=== PATIENT | male | born 1960 | race Caucasian/White ===

== ENCOUNTER 2018-08-26 13:16 | Outpatient (CLI) | payer OTHER ==
[~2018-08-26 13:16] MED LIST: Gadobenate Dimeglumine 529 MG/1 ML (20ML VIAL) ONE
--- NOTE | 2018-08-26 15:35 | MRI ---
PRE AND POSTCONTRAST ENHANCED MRI IMAGES LUMBAR SPINE 08/26/18 HISTORY: Previous surgery. Right leg pain. Multiplanar and multisequence pre and postcontrast enhanced MRI images lumbar spine obtained. For the purposes of this dictation, the last freely mobile vertebral body will be considered to be the L5 ve rtebral body. All other vertebral bodies numbered according to this. T12-L1, L1-2, L2-3: Unremarkable. L3-4: There is a mild broad based disc bulge and mild facet hypertrophy resulting in minimal central and lateral recess stenosis. The neural foramen are patent. L4-5: Disc desiccation seen. There is a right L4-5 foraminal and lateral recess disc extrusion extend ing into the epidural space compressing the right L4-5 lateral recess and right L5 nerve root. This e xtrusion has three dimensional measurements of 8.5 x 22 x 6.4 mm. The extrusion compresses the latera l recess and extends into the right neural foramen. The left neural foramen is patent. L5-S1: Disc desiccation seen. There is a broad based disc bulge and bilateral facet hypertrophy. No s ignificant degree of central stenosis seen. Mild lateral recess stenosis seen. The neural foramen are patent. Fluid seen in the L5-S1 disc space. IMPRESSION: 1. L5-S1 disc desiccation. 2. Large right L4-5 lateral recess and neural foraminal disc extrusion. POS: C
== END 2018-08-26 13:17 | disposition home or self-care (01) ==
LOC: TBSIIMAG 13:16
PROVIDERS: ATTEND Neurological Surgery
DX: M51.16 Intervertebral disc disorders with radiculopathy, lumbar region (principal)
CPT/HCPCS: 72158; A9577

== ENCOUNTER 2018-09-22 06:26 | Outpatient (CLI) | payer OTHER ==
[2018-09-22 11:01] LABS: Hemoglobin 14.1 g/dL (14.0-18.0); Mean Corpuscular HGB CONC 34.9 g/dL (32.0-36.0); Mean Corpuscular Hemoglobin 31.8 pg (27.0-31.0); Mean Corpuscular Volume 90.9 fL (78.0-98.0); Mean Platelet Volume 8.7 fL (7.4-10.4); Platelet Count 187 thou/uL (130-400); RBC Distribution Width 11.2 % (11.5-14.5); Red Blood Cell (RBC) Count 4.44 mill/uL (4.70-6.10); White Blood Cell (WBC) Count 4.8 thou/uL (4.8-10.8)
[2018-09-22 11:13] LABS: Anion Gap 11 mmol/L (10-20); BUN (Urea Nitrogen) 22 mg/dL (8.4-25.7); Calc. Creatinine Clearance 0 mL/min (70-130); Calcium 9.8 mg/dL (7.8-10.44); Carbon Dioxide 28 mmol/L (22-29); Chloride 105 mmol/L (98-107); Estimated GFR-MDRD 78; Glucose 103 mg/dL (70-105); Potassium 4.1 mmol/L (3.5-5.1); Sodium 140 mmol/L (136-145)
--- NOTE | 2018-09-28 18:14 | EKG ---
Test Reason : Blood Pressure : / mmHG Vent. Rate : 090 BPM Atrial Rate : 090 BPM P-R Int : 182 ms QRS Dur : 090 ms QT Int : 350 ms P-R-T Axes : 059 -02 039 degrees QTc Int : 428 ms Normal sinus rhythm Normal ECG When compared with ECG of 22-SEP-2018 10:07, (Unconfirmed) Sinus rhythm has replaced Junctional rhythm Confirmed by DIPESH HILTON (2) on 09/28/2018 6:13:49 PM Referred By: ELIER Confirmed By:DIPESH HILTON
== END 2018-09-22 06:27 | disposition home or self-care (01) ==
LOC: LABBT 06:26
PROVIDERS: ATTEND Neurological Surgery
DX: Z01.818 Encounter for other preprocedural examination (principal); M54.16 Radiculopathy, lumbar region
CPT/HCPCS: 80048; 85027; 93005; 93010

== ENCOUNTER 2018-09-27 07:52 | Day surgery (SDC) | payer OTHER ==
[2018-09-22 09:31] VITALS: BMI 27.1
[2018-09-27] MEDS ORDERED: Fentanyl 100 MCG/2 ML VIAL ONE ×4 (12:14→15:18)
[2018-09-27] MEDS ORDERED: Lidocaine 2% Jelly 5 ML TUBE ONE (12:24)
[2018-09-27] MEDS ORDERED: Meperidine HCl/PF 25 MG/ML VIAL ONE (15:20)
--- NOTE | 2018-09-27 15:27 | OP ---
DATE OF PROCEDURE: 09/27/2018 DISTANCE LEARNING ADMINISTRATOR: Melvina Jaime PA-C. PROCEDURE PERFORMED: Right L4-L5 redo microdiskectomy. DESCRIPTION OF PROCEDURE: The patient was brought to the operating room and intubated. He was rolled in a prone position on gel-filled chest rolls. An incision was made exposing L4 and L5 on the right, and the level was confirmed by x-ray. We identified the previous scar and extended the right L4-L5 hemilaminectomy. Beneath the right L5 nerve root, we did identify disk extrusion that was removed in multiple fragments. Copious scar tissue was present, which did challenge the resection. We did not find any disk extending into the L4 neuroforamen. After complete decompression had been secured, the wound was extensively irrigated and MAC hemostasis was secured. Vancomycin powder was applied, and the wound was closed in anatomic layers. Job ID: [id number]
[2018-09-27] MEDS ORDERED: Rocuronium Bromide 10 MG/ML (10ML VIAL) ONE (15:42)
[2018-09-27] MEDS ORDERED: Dexamethasone 20 MG/5 ML VIAL ONE (15:42)
[2018-09-27] MEDS ORDERED: Glycopyrrolate 0.2 MG/ML 5 ML SYRINGE ONE (15:42)
[2018-09-27] MEDS ORDERED: PROPOFOL 200 MG/20 ML VIAL ONE (15:42)
[2018-09-27] MEDS ORDERED: Ketorolac Tromethamine 30 MG/ML VIAL ONE (15:42)
[2018-09-27] MEDS ORDERED: Lidocaine 2% PF 5 ML VIAL ONE (15:42)
[2018-09-27] MEDS ORDERED: Ondansetron PF 4 MG/2 ML Vial ONE (15:42)
[2018-09-27] MEDS ORDERED: HYDROcodone/Acetaminophen 5/325 mg Tablet ONE (16:12)
--- NOTE | 2018-09-27 17:36 | EKG ---
Test Reason : PREOP Blood Pressure : / mmHG Vent. Rate : 090 BPM Atrial Rate : 090 BPM P-R Int : 206 ms QRS Dur : 092 ms QT Int : 364 ms P-R-T Axes : 099 -12 032 degrees QTc Int : 445 ms Sinus rhythm with Premature atrial complexes with Abberant conduction Otherwise normal ECG When compared with ECG of 22-SEP-2018 10:10, (Unconfirmed) Abberant conduction is now Present Confirmed by PHOEBE GARSIA, SSherry ([id number]) on 09/27/2018 5:36:24 PM Referred By: ELIER Confirmed By:DR. Willie SANDHU MD
== END 2018-09-27 17:30 | disposition home or self-care (01) ==
LOC: SDC 07:52
PROVIDERS: ATTEND Neurological Surgery
PROC: 0SB20ZZ Excision of Lumbar Vertebral Disc, Open Approach (ICD-10-PCS; principal; 2018-09-27)
DX: M51.16 Intervertebral disc disorders with radiculopathy, lumbar region (principal); Z79.1 Long term (current) use of non-steroidal anti-inflammatories (NSAID); Z79.891 Long term (current) use of opiate analgesic; Z79.899 Other long term (current) drug therapy
CPT/HCPCS: 76000; 93005; 93010; J0690; J1100; J1885; J2001; J2175; J2405; J2704; J3010; J3370

== ENCOUNTER 2019-08-25 15:11 | Outpatient (CLI) | payer OTHER ==
--- NOTE | 2019-08-25 17:44 | MRI ---
MRI LUMBAR SPINE WITH AND WITHOUT IV CONTRAST: 08/25/19 HISTORY: Lumbar radiculopathy. History of prior surgery. COMPARISON: 08/26/18. FINDINGS: Subcentimeter increased T2 weighted signal intensity lesions are again seen within the posterior aspe ct superior pole right kidney and in the posteromedial aspect of the mid portion left kidney unchange d in size or appearance compared to prior study, and no enhancement is seen likely related to small r enal cysts. Remainder of the retroperitoneal structures demonstrate a normal MRI appearance. Conus medullaris is normal in appearance and terminates at the L1-2 level. Focus of increased T1 and T2 weighted signal intensity is seen in the L2 as well as L4 vertebral bodi es likely related to small hemangiomas. End plate degenerative changes are again present at the L4-5 and L5-S1 levels. L1-2 level: No disc bulge or disc herniation. Central spinal canal and neural foramina are patent. L2-3 level: No disc bulge or disc herniation. Central spinal canal and neural foramina are patent. L3-4 level: Again noted is a mild broad based disc osteophyte complex with facet hypertrophic changes . There is no significant central canal or neural foraminal narrowing at this level. L4-5 level: Again noted is mild loss of intervertebral disc height. A right paracentral and foraminal disc protrusion is again seen; although, the AP dimension of the disc protrusion has improved. Previ ously measuring approximately 9 mm AP and now measures approximately 7 mm. There is slightly less mas s effect on the right anterolateral aspect of the thecal sac at this level. Mild mass effect does per sists. A right laminotomy defect is present at this level with enhancement seen in the region of the laminot delio defect and just to the right of the thecal sac likely related to scarring. The area of enhancemen t extends into the right lateral recess and abuts the traversing right L5 nerve root and partilally s urrounds the nerve root just as the nerve root exits the thecal sac. The neural foramina are patent a t this level. There is only slight mass effect on the right anterolateral aspect of the thecal sac. L5-S1 level: There is loss of intervertebral disc height. Broad based disc osteophyte complex is agai n seen similar to prior exam. Mild encroachment on each neural foramen is present similar to prior st udy. Central spinal canal is patent. IMPRESSION: 1. Postoperative changes L4-5 level with evidence of right laminotomy defect with enhancement se en in the region of the laminotomy defect and extending along the right lateral aspect of the thecal sac to the level of the subarticular zone in the region of the lateral recess compatible with scar. T he enhancement does abut and partially surrounds the traversing right L5 nerve root. 2. Improvement in size of the right foraminal disc protrusion compared to prior study, but a sma ll right foraminal disc protrusion does persist. 3. Stable mild degenerative changes at the L5-S1 level. 4. No high grade central canal or neural foraminal narrowing at any level. POS: J CARLOS
== END 2019-08-25 15:12 | disposition home or self-care (01) ==
LOC: TBSIIMAG 15:11
PROVIDERS: ATTEND Neurological Surgery
DX: M51.16 Intervertebral disc disorders with radiculopathy, lumbar region (principal); M47.27 Other spondylosis with radiculopathy, lumbosacral region; Z98.890 Other specified postprocedural states
CPT/HCPCS: 72158

== ENCOUNTER 2019-10-20 07:46 | Outpatient (CLI) | payer OTHER ==
--- NOTE | 2019-10-20 09:05 | BD ---
EXAM: DEXA bone density examination HISTORY: Displacement of intervertebral disc. COMPARISON: None. FINDINGS: L1--bone mineral density 0.920 g/sq cm; T score -1.4 . Z score -0.9 L2--bone mineral density 1.029 g/sq cm; T score -0.6; Z score 0.0 L3--bone mineral density 0.990 g/sq cm; T score -1.0; Z score -0.4 L4--bone mineral density 1.073 g/sq cm; T score -0.2, Z score 0.5 Total L1-L4 1.007 g/sq cm; T score -0.8, Z score -0.2 Left femoral neck 0.704; g/sq cm; T score -1.7, Z score -0.7 Total proximal left femur 0.912 g/sq cm; T score -0.8, Z score .-0.4 This patient has a 10 year WHO fracture risk of a major osteoporotic fracture of 6.0% and of a hip fr acture of 0.7%. IMPRESSION: Based on the WHO criteria, the patient's bone mineral density is considerednormal for the spine and o steopenia for the femoral neck. Transcribed Date/Time: 10/20/2019 9:23 AM
== END 2019-10-20 07:47 | disposition home or self-care (01) ==
LOC: BICMAMMO 07:46
DX: Z13.820 Encounter for screening for osteoporosis (principal); M53.80 Other specified dorsopathies, site unspecified; M85.859 Other specified disorders of bone density and structure, unspecified thigh
CPT/HCPCS: 77080

== ENCOUNTER 2020-02-27 13:07 | Outpatient (CLI) | payer OTHER ==
--- NOTE | 2020-02-27 15:11 | RAD ---
LUMBAR SPINE SERIES 4 VIEWS: Date: 02/27/2020 HISTORY: Back pain. History of surgery. FINDINGS: Disc implant is present at the L4-5 level. There is moderate disc narrowing at L5-S1. Minimal disc na rrowing at L3-4. Slight scoliotic change to the spine is noted convex to the right. IMPRESSION: Arthritic change and postop changes of the spine. POS: NATHALIE
== END 2020-02-27 13:08 | disposition home or self-care (01) ==
LOC: BICRAD 13:07
PROVIDERS: ATTEND Orthopaedic Surgery Orthopaedic Surgery of the Spine
DX: M53.80 Other specified dorsopathies, site unspecified (principal); M47.816 Spondylosis without myelopathy or radiculopathy, lumbar region; Z98.890 Other specified postprocedural states
CPT/HCPCS: 72110